=== PATIENT | female | born 2005 | race Caucasian/White ===

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

== ENCOUNTER 2024-01-15 16:58 | Emergency (ER) | payer MEDICAID ==
[~2024-01-15] VITALS: Ht 175.3 cm; Wt 75.0 kg
[2024-01-15 17:04] VITALS: BP 124/78; TEMP 98.4
[2024-01-15] MEDS ORDERED: dexAMETHasone 10 MG/ML VIAL IM ONE (17:30)
[2024-01-15 19:23] VITALS: PULSE 87
== END 2024-01-15 19:34 | disposition home or self-care (01) ==
LOC: COL.ER 16:58
DX: T78.40XA Allergy, unspecified, initial encounter (principal); X58.XXXA Exposure to other specified factors, initial encounter
CPT/HCPCS: J1100